=== PATIENT | male | born 1985 | race Caucasian/White ===

== ENCOUNTER 2018-01-01 14:33 | Emergency (ER) | payer OTHER | END 2018-01-01 16:11 | disposition home or self-care (01) | LOC: M ED 14:33 | DX: Z04.3 Encounter for examination and observation following other accident (principal); V43.52XA Car driver injured in collision with other type car in traffic accident, initial encounter; Y92.9 Unspecified place or not applicable; Y93.9 Activity, unspecified | CPT/HCPCS: 99283 ==